=== PATIENT | male | born 1965 | race Caucasian/White ===

== ENCOUNTER 2016-09-08 01:45 | Emergency (ER) | payer OTHER, BC ==
[~2016-09-08] VITALS: Ht 177.8 cm; Wt 114.8 kg
[2016-09-08] MEDS ORDERED: MORPHINE SULFATE 4 MG/ML, 1ML ONE (02:28)
[2016-09-08] MEDS ORDERED: ONDANSETRON 2MG/ML, 2ML ONE (02:28)
[2016-09-08] MEDS ORDERED: SODIUM CHLORIDE 0.9% 1,000ML IVBOLUS ONE (02:30)
[2016-09-08] MEDS ORDERED: MORPHINE SULFATE 4 MG/ML, 1ML IVPush PRN (02:30)
[2016-09-08] MEDS ORDERED: SODIUM CHLORIDE FLUSH 10ML SYR IVF ONE (02:30)
[2016-09-08] MEDS ORDERED: ONDANSETRON 2MG/ML, 2ML IVPush ONE (02:30)
[2016-09-08 02:38] LABS: PATH.CAST-FLAG NOT PRESENT; SPERM-FLAG NOT PRESENT; SRC-FLAG NOT PRESENT; XTAL-FLAG NOT PRESENT; YLC-FLAG NOT PRESENT
[2016-09-08 02:44] LABS: ASPARTATE AMINO TRANSFERASE 19 U/L (15-37); BLOOD UREA NITROGEN 19 mg/dL (7-18)
[2016-09-08 03:10] VITALS: BP 130/74
== END 2016-09-08 03:14 | disposition home or self-care (01) ==
LOC: ED 03:09
DX: R10.32 Left lower quadrant pain (principal); I10 Essential (primary) hypertension; K21.9 Gastro-esophageal reflux disease without esophagitis; E78.00 Pure hypercholesterolemia, unspecified; I25.2 Old myocardial infarction
CPT/HCPCS: 36415; 76857; 80053; 81001; 83605; 85025; 96374; 96375; 99285; J2405; J7030

== ENCOUNTER → 2016-09-12 | Outpatient (CLI) | payer BC, OTHER | END | disposition home or self-care (01) | LOC: CFH 16:11 | PROVIDERS: ATTEND Colon & Rectal Surgery | DX: R19.09 Other intra-abdominal and pelvic swelling, mass and lump (principal) | CPT/HCPCS: 76857 ==

== ENCOUNTER 2016-09-22 11:38 | Day surgery (SDC) | payer BC, OTHER ==
[~2016-09-22] VITALS: Ht 177.8 cm; Wt 118.0 kg
[~2016-09-22 11:38] MED LIST: BUPIVACAINE/PF-EPI 0.5% 1:200K ONE; FENTANYL PF 250 MCG/5ML ONE; MIDAZOLAM 1 MG/ML, 2ML ONE
[2016-09-22] MEDS ORDERED: LACTATED RINGERS 1,000 ML IV SCH (12:29)
[2016-09-22 12:30] VITALS: BP 149/96
[2016-09-22] MEDS ORDERED: LIDOCAINE 1%, 2ML SQ PRN (12:30)
[2016-09-22] MEDS ORDERED: ASPI-496 PO (12:40)
[2016-09-22] MEDS ORDERED: OMEP40CA6 PO (12:40)
[2016-09-22] MEDS ORDERED: SERT100T5 PO (12:40)
[2016-09-22] MEDS ORDERED: METO50TA82 PO (12:40)
[2016-09-22] MEDS ORDERED: HYDR12.58 PO (12:40)
[2016-09-22] MEDS ORDERED: LISI-170 PO (12:40)
[2016-09-22] MEDS ORDERED: CLON-364 PO (12:40)
[2016-09-22] MEDS ORDERED: FENO54TA17 PO (12:40)
[2016-09-22] MEDS ORDERED: PROPOFOL 10 MG/ML, 20ML ONE (12:50)
[2016-09-22] MEDS ORDERED: ROCURONIUM 10 MG/ML ONE (12:50)
[2016-09-22] MEDS ORDERED: GLYCOPYRROLATE 0.2MG/1ML ONE (12:50)
[2016-09-22] MEDS ORDERED: NEOSTIGMINE 1 MG/ML, 10ML ONE (12:50)
[2016-09-22] MEDS ORDERED: CEFAZOLIN 1,000 MG ONE (12:50)
[2016-09-22] MEDS ORDERED: MEPERIDINE/PF 25MG/0.5ML IVPush PRN (13:00)
[2016-09-22] MEDS ORDERED: HYDROmorphone 1 MG/ML, 1ML IV PRN (13:00)
[2016-09-22] MEDS ORDERED: METOCLOPRAMIDE 5 MG/ML, 2ML IV PRN (13:00)
[2016-09-22] MEDS ORDERED: hydrALAzine 20 MG/ML, 1ML IV PRN (13:00)
[2016-09-22] MEDS ORDERED: PROMETHAZINE 25 MG/ML, 1ML IV PRN (13:00)
[2016-09-22] MEDS ORDERED: ONDANSETRON 2MG/ML, 2ML IVPush PRN (13:00)
[2016-09-22] MEDS ORDERED: ACETAMINOPHEN 325 MG TABLET PO PRN (13:00)
[2016-09-22] MEDS ORDERED: OXYcodone 5 MG/5 ML ORAL.SOL UDC PO PRN (13:00)
[2016-09-22] MEDS ORDERED: LABETALOL 5MG/ML, 20ML IV PRN (13:00)
[2016-09-22] MEDS ORDERED: THROMBIN 20,000 UNIT VIAL TP ONE (13:40)
[2016-09-22] MEDS ORDERED: THROMBIN 5,000 UNIT VIAL TP ONE (13:40)
[2016-09-22] MEDS ORDERED: KETOROLAC 30 MG/1 ML IM STA (14:18)
[2016-09-22] MEDS ORDERED: KETOROLAC 30 MG/1 ML ONE (14:21)
[2016-09-22] MEDS ORDERED: FENTANYL PF 100 MCG/2ML ONE (14:27)
[2016-09-22] MEDS ORDERED: ACETAMINOPHEN 325 MG TABLET ONE (14:27)
[2016-09-22] MEDS ORDERED: OXYcodone 5 MG/5 ML ORAL.SOL UDC ONE (14:28)
[2016-09-22] MEDS ORDERED: KETOROLAC 30 MG/1 ML IM ONE (14:30)
[2016-09-22] MEDS: FENTANYL PF 100 MCG/2ML IV PRN ×4 (14:33→15:28)
[2016-09-22] MEDS ORDERED: ONDANSETRON 2MG/ML, 2ML ONE (15:12)
[2016-09-22] MEDS ORDERED: hydrALAzine 20 MG/ML, 1ML ONE (15:15)
[2016-09-22] MEDS ORDERED: MORPHINE SULFATE 4 MG/ML, 1ML ONE (16:30)
[2016-09-22] MEDS ORDERED: MORPHINE SULFATE 4 MG/ML, 1ML IVPush PRN (17:00)
== END 2016-09-22 17:15 | disposition home or self-care (01) ==
LOC: OUT 11:38
PROVIDERS: ATTEND Colon & Rectal Surgery
DX: M79.89 Other specified soft tissue disorders (principal); I10 Essential (primary) hypertension; I48.91 Unspecified atrial fibrillation; I25.10 Atherosclerotic heart disease of native coronary artery without angina pectoris; G47.33 Obstructive sleep apnea (adult) (pediatric); K21.9 Gastro-esophageal reflux disease without esophagitis; E78.00 Pure hypercholesterolemia, unspecified; Z72.89 Other problems related to lifestyle; Z83.3 Family history of diabetes mellitus; Z91.010 Allergy to peanuts; E66.9 Obesity, unspecified; Z68.37 Body mass index [BMI] 37.0-37.9, adult
CPT/HCPCS: 27043; 88304; 93005; J0360; J0690; J1885; J2250; J2405; J2704; J2710; J3010; J7120; J3490

== ENCOUNTER 2017-01-06 07:50 | Inpatient (IN) | payer BC, OTHER ==
[~2017-01-06] VITALS: Ht 177.8 cm; Wt 116.6 kg
[~2017-01-06 07:50] MED LIST changes: +ASPI-496 PO; -BUPIVACAINE/PF-EPI 0.5% 1:200K ONE; +CLON-364 PO; +FENO54TA17 PO; -FENTANYL PF 250 MCG/5ML ONE; +HYDR12.58 PO; +LISI-170 PO; +METO50TA82 PO; -MIDAZOLAM 1 MG/ML, 2ML ONE; +OMEP40CA6 PO; +SERT100T5 PO
[2017-01-06] MEDS ORDERED: ASPIRIN 81 MG TABLET CHEW ONE (08:18)
[2017-01-06] MEDS ORDERED: MAALOX/HYOSCYAMINE/LIDOCAINE 45 ML BTL ONE (08:19)
[2017-01-06 08:29] LABS: HEMATOCRIT 43.6 % (39.2-51.8); HEMOGLOBIN 14.9 g/dL (13.7-18.0); WHITE BLOOD COUNT 9.4 x10^3/uL (3.4-10)
[2017-01-06] MEDS ORDERED: ASPIRIN 81 MG TABLET CHEW PO ONE (08:30)
[2017-01-06] MEDS ORDERED: MAALOX/HYOSCYAMINE/LIDOCAINE 45 ML BTL PO ONE (08:30)
[2017-01-06 08:47] LABS: BLOOD UREA NITROGEN 11 mg/dL (7-18)
[2017-01-06 08:48] LABS: IS PT STATUS REG ER OR PRE ER? YES
[2017-01-06] MEDS ORDERED: ACETAMINOPHEN 650 MG/20.3 ML UDC PO PRN (11:00)
[2017-01-06] MEDS ORDERED: morphine SULFATE 10 MG/ML, 1ML IV PRN (11:00)
[2017-01-06] MEDS ORDERED: ONDANSETRON 2MG/ML, 2ML IVP PRN (11:00)
[2017-01-06] MEDS ORDERED: MAALOX/HYOSCYAMINE/LIDOCAINE 45 ML BTL PO PRN (11:30)
[2017-01-06 11:56] VITALS: BP 124/78
[2017-01-06 14:36] VITALS: BP 122/82
[2017-01-06 14:55] LABS: IS PT STATUS REG ER OR PRE ER? NO
[2017-01-06] MEDS ORDERED: ENALAPRILAT 1.25 MG/ML, 2ML IV PRN (15:00)
[2017-01-06] MEDS: ENOXAPARIN 40 MG/0.4 ML SQ SCH (15:08)
[2017-01-06 18:31] VITALS: BP 124/84
[2017-01-06] MEDS: OMEPRAZOLE 20 MG CAPSULE.DR PO SCH (21:21)
[2017-01-06] MEDS: METOPROLOL TARTRATE 50 MG TABLET PO SCH (21:22)
[2017-01-06] MEDS: SODIUM CHLORIDE FLUSH 10ML SYR IVF SCH (21:22)
[2017-01-06 21:24] LABS: IS PT STATUS REG ER OR PRE ER? NO
[2017-01-07 02:33] VITALS: BP 119/82
[2017-01-07] MEDS ORDERED: ASPIRIN 325 MG TABLET EC PO SCH (06:00)
[2017-01-07] MEDS ORDERED: NITROGLYCERIN 0.4 MG BOTTLE (25 TABS) SL ONE (06:32)
[2017-01-07 06:36] VITALS: BP 129/91
[2017-01-07] MEDS: NITROGLYCERIN SINGLE TAB 0.4 MG SL PRN ×2 (06:39→06:46)
[2017-01-07 06:44] VITALS: BP 127/79
[2017-01-07 06:53] VITALS: BP 119/75
[2017-01-07] MEDS: SODIUM CHLORIDE FLUSH 10ML SYR IVF SCH (08:08)
[2017-01-07] MEDS: OMEPRAZOLE 20 MG CAPSULE.DR PO SCH (08:09)
[2017-01-07] MEDS: METOPROLOL TARTRATE 50 MG TABLET PO SCH (08:09)
[2017-01-07 08:41] VITALS: BP 121/75
[2017-01-07] MEDS ORDERED: LISINOPRIL 20 MG TABLET PO SCH (09:00)
[2017-01-07] MEDS ORDERED: SERTRALINE 100MG TABLET PO SCH (09:00)
[2017-01-07] MEDS ORDERED: HYDROCHLOROTHIAZIDE 12.5 MG CAPSULE PO SCH (09:00)
[2017-01-07] MEDS ORDERED: FENOFIBRATE 54 MG TABLET PO SCH (09:00)
[2017-01-07] MEDS ORDERED: REGADENOSON 0.4 MG/5 ML SYRINGE ONE (09:36)
[2017-01-07] MEDS: ENOXAPARIN 40 MG/0.4 ML SQ SCH (12:00)
[2017-01-07] MEDS ORDERED: NITR0.4T SL (13:28)
== END 2017-01-07 13:58 | disposition home or self-care (01) | DRG 311 ==
LOC: ED 08:30 → EDIP 09:35 → 5SO 10:59
PROVIDERS: ADMIT Internal Medicine; ATTEND Hospitalist
DX: I24.9 Acute ischemic heart disease, unspecified (principal); R13.10 Dysphagia, unspecified; I10 Essential (primary) hypertension; E78.00 Pure hypercholesterolemia, unspecified; E78.5 Hyperlipidemia, unspecified; F12.90 Cannabis use, unspecified, uncomplicated; F41.9 Anxiety disorder, unspecified; G47.33 Obstructive sleep apnea (adult) (pediatric); I25.2 Old myocardial infarction; K21.9 Gastro-esophageal reflux disease without esophagitis; F32.9 Major depressive disorder, single episode, unspecified; Z80.3 Family history of malignant neoplasm of breast
CPT/HCPCS: 36415; 71010; 78452; 80048; 80061; 82040; 84484; 85025; 85379; 85610; 85730; 93005; 93017; 99285; J1650; J2785; A9502; C9898

== ENCOUNTER 2017-03-08 10:01 | Day surgery (SDC) | payer BC, OTHER ==
[2017-03-07 09:41] VITALS: BP 111/69
[2017-03-07 09:55] LABS: HEMOGLOBIN 16.8 g/dL (13.7-18.0); WHITE BLOOD COUNT 8.1 x10^3/uL (3.4-10)
[2017-03-07 09:58] LABS: BLOOD UREA NITROGEN 23 mg/dL (7-18)
[~2017-03-08] VITALS: Ht 177.8 cm; Wt 113.6 kg
[~2017-03-08 10:01] MED LIST changes: +NITR0.4T SL; +TAMS0.4C2 PO
[2017-03-08] MEDS ORDERED: NITR2.5C8 PO (10:44)
[2017-03-08] MEDS ORDERED: SODIUM CHLORIDE 0.9% 1,000 ML IV SCH ×2 (10:49→10:51)
[2017-03-08] MEDS ORDERED: ACETAMINOPHEN 325 MG TABLET PO PRN (11:00)
[2017-03-08] MEDS ORDERED: BISACODYL 10 MG SUPP PR PRN (11:00)
[2017-03-08] MEDS ORDERED: ONDANSETRON 2MG/ML, 2ML IVPush PRN (11:00)
[2017-03-08] MEDS ORDERED: ASPIRIN 325 MG TABLET EC PO ONE (11:00)
[2017-03-08] MEDS ORDERED: BISACODYL 5 MG EC TABLET PO PRN (11:00)
[2017-03-08] MEDS ORDERED: FENTANYL PF 100 MCG/2ML ONE ×2 (12:05→12:27)
[2017-03-08] MEDS ORDERED: MIDAZOLAM 1 MG/ML, 5ML ONE ×2 (12:05→12:23)
[2017-03-08] MEDS ORDERED: VERAPAMIL 2.5 MG/ML, 2ML ONE (12:10)
[2017-03-08] MEDS ORDERED: NITROGLYCERIN 5 MG/ML, 10ML ONE (12:10)
[2017-03-08] MEDS ORDERED: LIDOCAINE 2%, 20ML ONE ×2 (12:10→12:27)
[2017-03-08] MEDS ORDERED: HEPARIN 1,000 UNITS/ML, 10ML ONE (12:11)
[2017-03-08] MEDS ORDERED: CEFAZOLIN PMX 1GM/50ML 50 ML ONE (12:43)
[2017-03-08] MEDS ORDERED: NITROGLYCERIN 2.5 MG CAPSULE.ER PO PRN (13:30)
[2017-03-08] MEDS ORDERED: SERTRALINE 100MG TABLET PO SCH (21:00)
[2017-03-08] MEDS ORDERED: METOPROLOL TARTRATE 50 MG TABLET PO SCH (21:00)
[2017-03-08] MEDS ORDERED: ZOLPIDEM 5MG TABLET PO PRN (21:00)
[2017-03-09] MEDS ORDERED: TAMSULOSIN 0.4 MG CAP.ER.24H PO SCH (09:00)
[2017-03-09] MEDS ORDERED: TEMPLATE NON-FORMULARY MED. (Omeprazole** 40 MG) PO SCH (09:00)
[2017-03-09] MEDS ORDERED: LISINOPRIL 20 MG TABLET PO SCH (09:00)
[2017-03-09] MEDS ORDERED: HYDROCHLOROTHIAZIDE 12.5 MG CAPSULE PO SCH (09:00)
[2017-03-09] MEDS ORDERED: FENOFIBRATE 54 MG TABLET PO SCH (09:00)
== END 2017-03-08 15:06 ==
LOC: CACL 10:01
PROVIDERS: ATTEND Internal Medicine Cardiovascular Disease
DX: I20.1 Angina pectoris with documented spasm (principal); Z79.82 Long term (current) use of aspirin; I10 Essential (primary) hypertension; E78.1 Pure hyperglyceridemia; Z91.018 Allergy to other foods
CPT/HCPCS: 33284; 36415; 80048; 85025; 93458; 99156; 99157; C1894; J0690; J1644; J2250; J3010; J3490; Q9967

== ENCOUNTER → 2017-04-20 | Outpatient (CLI) | payer BC, OTHER ==
[~2017-04-20] MED LIST changes: +NITR2.5C8 PO
== END | disposition home or self-care (01) ==
LOC: CVU 08:04
PROVIDERS: ATTEND Internal Medicine Cardiovascular Disease
DX: I51.7 Cardiomegaly (principal); I11.9 Hypertensive heart disease without heart failure; I25.10 Atherosclerotic heart disease of native coronary artery without angina pectoris; I25.2 Old myocardial infarction
CPT/HCPCS: 93306

== ENCOUNTER 2018-12-28 12:25 | Outpatient (CLI) | payer OTHER | END 2018-12-28 23:59 | disposition home or self-care (01) | LOC: RAD 12:25 | PROVIDERS: ATTEND Family Medicine | DX: R31.9 Hematuria, unspecified (principal); D49.4 Neoplasm of unspecified behavior of bladder | CPT/HCPCS: 76770 ==

== ENCOUNTER → 2019-04-04 | Outpatient (CLI) | payer OTHER ==
[~2019-04-04] MED LIST changes: +ATOR-2 PO; -CLON-364 PO; +CLON0.5T11 PO; -HYDR12.58 PO; +HYDROCHLOROTH12.5 MG PO; -NITR0.4T SL; +NITR0.4T41 SL; +OMEP-110 PO; +OMEP40CA42 PO; -OMEP40CA6 PO; +OMNIPAQUE 350 MG/ML, 150 ML BOTTLE ONE; +SERT100T32 PO; -SERT100T5 PO; +VENL100T PO
== END | disposition home or self-care (01) ==
LOC: CFH 13:30
PROVIDERS: ATTEND Urology
DX: M48.56XA Collapsed vertebra, not elsewhere classified, lumbar region, initial encounter for fracture (principal); K40.90 Unilateral inguinal hernia, without obstruction or gangrene, not specified as recurrent; K76.0 Fatty (change of) liver, not elsewhere classified; R16.1 Splenomegaly, not elsewhere classified; N40.0 Benign prostatic hyperplasia without lower urinary tract symptoms; Z87.440 Personal history of urinary (tract) infections
CPT/HCPCS: 74178; 82565; Q9967

== ENCOUNTER 2019-04-13 14:28 | Emergency (ER) | payer OTHER ==
[~2019-04-13] VITALS: Ht 177.8 cm; Wt 126.0 kg
[~2019-04-13 14:28] MED LIST changes: -OMNIPAQUE 350 MG/ML, 150 ML BOTTLE ONE
[2019-04-13] MEDS ORDERED: HYDROcodone/APAP 5/325 TABLET ONE (14:56)
[2019-04-13] MEDS ORDERED: HYDROcodone/APAP 5/325 TABLET PO ONE (15:00)
[2019-04-13] MEDS ORDERED: SODIUM CHLORIDE FLUSH 10ML SYR IVF ONE (15:00)
[2019-04-13 15:05] LABS: BASOPHILS # (AUTO) 0.04 x10^3/uL (0-0.1); BASOPHILS % (AUTO) 1 % (0-1); EOSINOPHILS # (AUTO) 0.16 x10^3/uL (0-0.4); EOSINOPHILS % (AUTO) 3 % (1-7); LYMPHOCYTES # (AUTO) 1.53 x10^3/uL (1-3.4); LYMPHOCYTES % (AUTO) 25 % (22-44); MD NO; MEAN CORPUSCULAR HEMOGLOBIN 29.9 pg (27.5-34.5); MEAN CORPUSCULAR HGB CONC 33.7 g/dL (33.2-36.2); MEAN CORPUSCULAR VOLUME 88.6 fL (81-97); MEAN PLATELET VOLUME 7.6 fL (7.4-10.4); MONOCYTES # (AUTO) 0.29 x10^3/uL (0.2-0.8); MONOCYTES % (AUTO) 5 % (2-9); NEUTROPHILS # (AUTO) 4.05 x10^3/uL (1.8-6.8); NEUTROPHILS % (AUTO) 67 % (42-75); PLATELET COUNT 171 x10^3/uL (130-400); RED BLOOD COUNT 4.87 x10^6/uL (4.38-5.82); RED CELL DISTRIBUTION WIDTH 13.7 % (9.4-14.8)
--- NOTE | 2019-04-13 15:10 | NUR ---
IV PLACED, LABS DRAWN WITH START. PT MEDICATED FOR 9/10 LUQ/RIB PAIN. EKG COMPLETED. URINAL AT BS.
[2019-04-13 15:14] LABS: ALANINE AMINOTRANSFERASE 37 U/L (12-78); ALBUMIN 3.8 g/dL (3.4-5.0); ANION GAP 5 mmol/L (5-15); CALCIUM 8.8 mg/dL (8.5-10.1); CHLORIDE 111 mmol/L (98-107); CREATININE 0.96 mg/dL (0.7-1.3)
[2019-04-13 15:16] LABS: ALKALINE PHOSPHATASE 75 U/L (45-117); BILIRUBIN,TOTAL 0.7 mg/dL (0.2-1.0); TOTAL PROTEIN 6.7 g/dL (6.4-8.2)
[2019-04-13] MEDS ORDERED: OMNIPAQUE 350 MG/ML, 100ML BOTTLE ONE (16:21)
[2019-04-13 16:48] VITALS: BP 125/71
== END 2019-04-13 16:50 | disposition home or self-care (01) ==
LOC: ED 15:07
DX: R07.89 Other chest pain (principal); R10.12 Left upper quadrant pain; I10 Essential (primary) hypertension; I25.2 Old myocardial infarction; K21.9 Gastro-esophageal reflux disease without esophagitis
CPT/HCPCS: 36415; 71101; 74177; 80053; 83690; 85025; 93005; 99284; Q9967

== ENCOUNTER 2019-07-02 10:18 | Outpatient (CLI) | payer OTHER ==
[~2019-07-02 10:18] MED LIST changes: +CLON-364 PO; -CLON0.5T11 PO
[2019-07-02 11:25] LABS: MICROSCOPIC AUTO
[2019-07-02] MEDS ORDERED: VENL75TA PO (11:31)
[2019-07-02 11:36] LABS: CULTURE INDICATED? NO
== END 2019-07-02 23:59 | disposition home or self-care (01) ==
LOC: STAR 10:18
PROVIDERS: ATTEND Urology
DX: Z01.818 Encounter for other preprocedural examination (principal); N40.1 Benign prostatic hyperplasia with lower urinary tract symptoms
CPT/HCPCS: 81001; 87086

== ENCOUNTER 2019-07-09 14:07 | Observation (INO) | payer OTHER ==
[~2019-07-09] VITALS: Ht 177.8 cm; Wt 128.5 kg
[~2019-07-09 14:07] MED LIST changes: +VENL75TA PO
[2019-07-09] MEDS ORDERED: LACTATED RINGERS 1,000 ML IV SCH (14:24)
[2019-07-09] MEDS ORDERED: LIDOCAINE-MPF 1%, 2ML INFIL ONE (14:30)
[2019-07-09] MEDS ORDERED: METO50TA82 PO (15:01)
[2019-07-09] MEDS ORDERED: FENO160T PO (15:01)
[2019-07-09] MEDS ORDERED: FENTANYL PF 250 MCG/5ML ONE ×2 (15:25→16:17)
[2019-07-09] MEDS ORDERED: MIDAZOLAM 1 MG/ML, 2ML ONE (15:25)
[2019-07-09] MEDS ORDERED: LIDOCAINE 2% 100MG/5ML SYRINGE ONE (15:42)
[2019-07-09] MEDS ORDERED: METOPROLOL 1 MG/ML, 5ML IV PRN (16:00)
[2019-07-09] MEDS ORDERED: ONDANSETRON 2MG/ML, 2ML IV PRN ×2 (16:00→21:30)
[2019-07-09] MEDS ORDERED: ACETAMINOPHEN 325 MG TABLET PO PRN ×2 (16:00→21:00)
[2019-07-09] MEDS ORDERED: PROMETHAZINE 25 MG/ML, 1ML IV PRN (16:00)
[2019-07-09] MEDS ORDERED: LABETALOL 5MG/ML, 20ML IV PRN (16:00)
[2019-07-09] MEDS ORDERED: PROMETHAZINE 25 MG SUPP PR PRN (16:00)
[2019-07-09] MEDS ORDERED: ONDANSETRON ODT 8 MG PO PRN (16:00)
[2019-07-09] MEDS ORDERED: HYDROmorphone 2 MG/ML, 1ML IVPush PRN (16:00)
[2019-07-09] MEDS ORDERED: LORazepam 2 MG/ML, 1ML IVPush PRN (16:00)
[2019-07-09] MEDS ORDERED: OXYcodone 5 MG/5 ML ORAL.SOL UDC PO PRN (16:00)
[2019-07-09] MEDS ORDERED: ALBUTEROL HFA 90 MCG/SPRAY ONE (16:06)
[2019-07-09] MEDS ORDERED: ONDANSETRON 2MG/ML, 2ML ONE (16:07)
[2019-07-09] MEDS ORDERED: DEXAMETHASONE 4 MG/ML, 1ML ONE (16:07)
[2019-07-09] MEDS ORDERED: NEOSTIGMINE 1 MG/ML, 10ML ONE (16:07)
[2019-07-09] MEDS ORDERED: SUCCINYLCHOLINE 20 MG/ML, 10ML ONE (16:07)
[2019-07-09] MEDS ORDERED: ROCURONIUM 10MG/ML,5ML ONE (16:07)
[2019-07-09] MEDS ORDERED: GLYCOPYRROLATE 0.2MG/1ML, 5ML ONE (16:07)
[2019-07-09] MEDS ORDERED: CEFAZOLIN 1,000 MG ONE (16:07)
[2019-07-09] MEDS ORDERED: PROPOFOL 10 MG/ML, 20ML ONE (16:07)
[2019-07-09] MEDS ORDERED: SUGAMMADEX 200 MG/2 ML IVPush ONE ×2 (16:45)
[2019-07-09] MEDS ORDERED: OPIUM/BELLADONNA SUPP.RECT 16.2-60 MG ONE (17:18)
[2019-07-09] MEDS ORDERED: FENTANYL PF 100 MCG/2ML ONE (17:22)
[2019-07-09] MEDS: FENTANYL PF 100 MCG/2ML IV PRN ×3 (17:29→17:55)
[2019-07-09] MEDS ORDERED: OPIUM/BELLADONNA SUPP.RECT 16.2-60 MG PR PRN (17:30)
[2019-07-09] MEDS ORDERED: OXYcodone 5 MG/5 ML ORAL.SOL UDC ONE (17:33)
[2019-07-09] MEDS ORDERED: MORPHINE SULFATE 4 MG/ML, 1ML ONE (19:13)
[2019-07-09] MEDS: MORPHINE SULFATE 4 MG/ML, 1ML IVPush PRN (19:18)
[2019-07-09] MEDS ORDERED: TEMAZEPAM 30 MG CAPSULE PO PRN (19:30)
[2019-07-09] MEDS ORDERED: ONDANSETRON 2MG/ML, 2ML IVPush PRN (19:30)
[2019-07-09] MEDS ORDERED: D5%-LACTATED RINGERS 1,000 ML IV SCH (21:30)
[2019-07-09] MEDS: D5%-LACTATED RINGERS 1,000 ML IV SCH (21:30)
[2019-07-09 23:28] VITALS: BP 124/84
[2019-07-10] MEDS: MORPHINE SULFATE 4 MG/ML, 1ML IVPush PRN ×3 (03:23→10:49)
[2019-07-10 03:24] VITALS: BP 129/90
[2019-07-10] MEDS ORDERED: OPIUM/BELLADONNA SUPP.RECT 16.2-60 MG PR PRN (05:30)
[2019-07-10] MEDS ORDERED: METOPROLOL TARTRATE 25 MG TAB PO SCH (06:00)
[2019-07-10 07:10] VITALS: BP 129/76
[2019-07-10] MEDS: D5%-LACTATED RINGERS 1,000 ML IV SCH (07:30)
[2019-07-10] MEDS ORDERED: OMEPRAZOLE 20 MG CAPSULE.DR PO SCH (09:00)
[2019-07-10] MEDS ORDERED: FENOFIBRATE 145 MG TABLET PO SCH (09:00)
[2019-07-10] MEDS ORDERED: LISINOPRIL 20 MG TABLET PO SCH (09:00)
[2019-07-10] MEDS ORDERED: VENLAFAXINE 75 MG CAP ER PO SCH (09:00)
[2019-07-10] MEDS ORDERED: OXYBUTYNIN CHLORIDE 5 MG TABLET PO SCH ×2 (09:30→16:00)
[2019-07-10] MEDS ORDERED: PHENAZOPYRIDINE 100 MG TABLET PO SCH (10:00)
[2019-07-10] MEDS ORDERED: PHEN-582 PO (10:24)
[2019-07-10] MEDS ORDERED: OXYB5TAB10 PO (10:24)
[2019-07-10] MEDS ORDERED: LIDOCAINE 2% VISCOUS 15 ML UDC MM PRN (10:30)
[2019-07-10] MEDS ORDERED: PHENAZOPYRIDINE 200 MG TABLET ONE (10:41)
[2019-07-10] MEDS ORDERED: LIDOCAINE GEL 2%, 5ML TP ONE (13:00)
[2019-07-10] MEDS ORDERED: ATORVASTATIN 20 MG TABLET PO SCH (21:00)
== END 2019-07-10 13:00 | disposition home or self-care (01) ==
LOC: OR 14:07 → 4NE 18:40 → OR 20:11 → 4NE 21:57 → DCLOUNGE 07-10 12:58
PROVIDERS: ADMIT Urology; ATTEND Urology
DX: N40.1 Benign prostatic hyperplasia with lower urinary tract symptoms (principal); N32.0 Bladder-neck obstruction; I10 Essential (primary) hypertension; Z87.440 Personal history of urinary (tract) infections; Z79.899 Other long term (current) drug therapy; Z87.438 Personal history of other diseases of male genital organs
CPT/HCPCS: 52601; 88305; 96374; 96376; G0378; J0690; J1100; J2250; J2270; J2405; J2704; J2710; J3010; J7120; J0330